=== PATIENT | female | born 1970 | race Two or more races ===

== ENCOUNTER 2019-06-15 21:51 | Emergency (ER) | payer MEDICARE, OTHER ==
[~2019-06-15] VITALS: Ht 175.3 cm; Wt 63.5 kg
--- NOTE | 2019-06-15 21:52 | NUR ---
ED Nurse Note: HAL EVANGELISTA 25 FROM HOME. COUSIN AT BEDSIDE. COUSIN STATES PT HAS BEEN ACTING DIFFERENTLY SINCE DINNER. PT IS COOPERATIVE AND STATES SHE STILL TAKES SEROQUEL. PT ADMITS DRINKING BEER PRIOR TO ARRIVAL.
[2019-06-15 22:03] VITALS: BP 149/103
--- NOTE | 2019-06-15 22:03 | NUR ---
ED Nurse Note: HAL EVANGELISTA #25, per family member patient had change in mental status after dinner today. Pt is A&O x4, V/S noted with no s/s of acute distress noted at this time; denies pain. ERMD at bedside evaluating the pt.
--- NOTE | 2019-06-15 22:13 | Emergency Room Report ---
History of Present Illness General Chief Complaint: Behavioral Complaint Source: Patient Present Illness HPI 49-year-old female brought in by EMS with chief complaint of altered mental status. She has history of chronic pain and psychiatric history. She was unresponsive sitting in the chair. Her family could not wake her up and her cousin was concerned and called 911. By time she got here she is back to baseline. Patient said that she took 2 extra Seroquel, drank 4 beers, a mood stabilizer probably Depakote, and took to [place] 10 mg each she was not trying to hurt her self. She says she is under a lot of stress. Patient denies any symptoms right now. Denies suicidal thoughts homicidal thought. She does not want anything to be done. Does not want any labs or diagnostic study. Allergies: Coded Allergies: No Known Allergies (Unverified , 06/15/19) Patient History Past Medical History: see triage record, old chart reviewed Past Surgical History: other Pertinent Family History: none Social History: Reports: alcohol use Now: No Immunizations: other Reviewed Nursing Documentation: PMH: Agreed; PSxH: Agreed Nursing Documentation-PMH Past Medical History: No History, Except For Hx Hypertension: Yes History Of Psychiatric Problem: Yes - BIPOLAR Review of Systems Eye: Denies: eye pain, blurred vision ENT: Denies: ear pain, nose congestion, throat swelling Respiratory: Denies: cough, shortness of breath Cardiovascular: Denies: chest pain, palpitations Gastrointestinal: Denies: abdominal pain, diarrhea, nausea, vomiting Musculoskeletal: Denies: back pain, joint pain Skin: Denies: rash Neurological: Denies: headache, numbness Endocrine: Denies: increased thirst, increased urine Hematologic/Lymphatic: Denies: easy bruising All Other Systems: negative except mentioned in HPI Physical Exam Vital Signs Date Time Temp Pulse Resp B/P (MAP) Pulse Ox O2 Delivery O2 Flow Rate FiO2 06/15/19 21:48 98.1 108 18 149/103 (118) 98 Room Air Vitals unremarkable Sp02 EP Interpretation: reviewed, normal General Appearance: well appearing, no apparent distress, alert Head: normocephalic, atraumatic Eyes: bilateral eye PERRL, bilateral eye EOMI ENT: hearing grossly normal, normal pharynx Neck: full range of motion, supple, no meningismus Respiratory: chest non-tender, lungs clear, normal breath sounds Cardiovascular #1: regular rate, rhythm, no murmur Gastrointestinal: normal bowel sounds, non tender, no mass, no organomegaly, no bruit, non-distended Musculoskeletal: back normal, gait/station normal, normal range of motion Psychiatric: mood/affect normal Medical Decision Making Diagnostic Impression: Primary Impression: Overdose Qualified Codes: T50.901A - Poisoning by unspecified drugs, medicaments and biological substances, accidental (unintentional), initial encounter Additional Impression: Altered mental status Qualified Codes: R41.82 - Altered mental status, unspecified ER Course With an altered mental status. Most likely secondary to substance overdose. She is back to baseline and alert and oriented now. Not suicidal homicidal. No criteria for 5150. Since she is competent, I cannot force her to do laboratory data or diagnostic testing. Will discharge home with her cousin. Last Vital Signs Date Time Temp Pulse Resp B/P (MAP) Pulse Ox O2 Delivery O2 Flow Rate FiO2 06/15/19 22:03 98.1 108 18 149/103 98 Room Air Status: improved Disposition: HOME, SELF-CARE Condition: Stable Additional Instructions: Take your medication as prescribed. Do not take too much. Follow-up with your doctor in 7 days. Return if worse. Keshav Hopkins MD Jun 15, 2019 22:13
[2019-06-15 22:22] VITALS: BP 149/103
--- NOTE | 2019-06-15 22:23 | NUR ---
ER DISCHARGE NOTE: Patient is cleared to be discharged per ERMD, pt is aox4, on room air, with stable vital signs. pt was given dc instructions, pt was able to verbalize understanding, pt id band removed. pt carried out in a wheelchair by pressure testing technician accompanied by family member. pt took all belongings.
== END 2019-06-15 22:22 | disposition home or self-care (01) ==
LOC: EDBD 21:51 → EMR 22:20
DX: T50.901A Poisoning by unspecified drugs, medicaments and biological substances, accidental (unintentional), initial encounter (principal); R41.82 Altered mental status, unspecified; X58.XXXA Exposure to other specified factors, initial encounter; Y92.9 Unspecified place or not applicable; I10 Essential (primary) hypertension; F31.9 Bipolar disorder, unspecified
CPT/HCPCS: 99283